=== PATIENT | female | born 1980 | race Hispanic/Latino ===

== ENCOUNTER 2018-05-08 15:51 | Emergency (ER) | payer MEDICAID ==
[2018-05-08 17:09] LABS: Hematocrit 41.7 % (30.3-42.9); Hemoglobin 14.8 gm/dl (10.1-14.3); Mean Corpuscular HGB Conc 36 % (30-34); Mean Corpuscular Hemoglobin 40 pg (28-32); Platelet Count 188 K/mm3 (140-440); Red Blood Count 3.76 M/mm3 (3.65-5.03); Red Cell Distribution Width 12.8 % (13.2-15.2)
[2018-05-08 17:17] LABS: Mean Corpuscular Volume 111 fl (79-97)
[2018-05-08 17:18] LABS: BUN/Creatinine Ratio 17; Blood Urea Nitrogen 10 mg/dL (7-17); Calcium 9.1 mg/dL (8.4-10.2); Hemolysis Index 8
--- NOTE | 2018-05-08 18:20 | Emergency Department Report ---
ED General Adult HPI - General Chief complaint: Neuro Symptoms/Deficit Stated complaint: RIGHT SIDE TINGLING Time Seen by Provider: 05/08/18 18:01 Source: patient Mode of arrival: Wheelchair Limitations: Physical Limitation - History of Present Illness Initial comments: Ms. Fonseca is a 38-year-old female with history of HIV/AIDS CD4 counts3. She was recently admitted in February severe PCP pneumonia nad acute hypoxemic respiratory failure at [facility]. She was admitted for 62 days. She has been a resident of [facility] for 3 days since discharge from Hospital. Since her illness she has had paresthesias tingling on the right arm and leg. She also tingling of left face. She has taken Fioricet and gabapentin for these symptoms. Also has a history of bipolar affective disorder. Currently taking Zoloft. History of tobacco and marijuana use. She is currently receiving physical therapy. She requires assistance with ambulation. Family history includes father with diabetes and heart disease. Patient lives in [place], [place] - Related Data Previous Rx's Medication Instructions Recorded Last Taken Type Butalb/Acetaminophen/Caffeine 1 cap PO Q6HR PRN #20 cap 05/08/18 Unknown Rx [Fioricet 50-300-40 mg CAP] Gabapentin [Neurontin] 300 mg PO TID 30 Days #90 capsule 05/08/18 Unknown Rx Allergies Allergy/AdvReac Type Severity Reaction Status Date / Time No Known Allergies Allergy Unverified 05/08/18 16:23 ED Review of Systems ROS: Stated complaint: RIGHT SIDE TINGLING Other details as noted in HPI Comment: All other systems reviewed and negative Constitutional: denies: fever, malaise Cardiovascular: denies: chest pain Gastrointestinal: denies: abdominal pain ED Past Medical Hx - Past Medical History Hx Psychiatric Treatment: Yes (DEPRESSION) Hx HIV: Yes - Surgical History Past Surgical History?: No - Social History Smoking Status: Current Every Day Smoker Substance Use Type: Marijuana - Medications Home Medications: Home Medications Medication Instructions Recorded Confirmed Last Taken Type Butalb/Acetaminophen/Caffeine 1 cap PO Q6HR PRN #20 cap 05/08/18 Unknown Rx [Fioricet 50-300-40 mg CAP] Gabapentin [Neurontin] 300 mg PO TID 30 Days #90 capsule 05/08/18 Unknown Rx ED Physical Exam - General Limitations: Physical Limitation General appearance: alert, in no apparent distress, other (sitting comfortably in stretcher using upper extremities fluidly, legs crossed at the ankle) - Head Head exam: Present: atraumatic, normocephalic - Eye Eye exam: Present: normal appearance - ENT ENT exam: Present: mucous membranes moist - Neck Neck exam: Present: normal inspection. Absent: tenderness, meningismus - Respiratory Respiratory exam: Present: normal lung sounds bilaterally. Absent: respiratory distress, wheezes, rales, rhonchi - Cardiovascular Cardiovascular Exam: Present: regular rate, normal rhythm, normal heart sounds. Absent: systolic murmur, diastolic murmur, rubs, gallop - GI/Abdominal GI/Abdominal exam: Present: soft, normal bowel sounds. Absent: distended, tenderness, guarding, rebound - Extremities Exam Extremities exam: Present: normal inspection - Back Exam Back exam: Present: normal inspection - Neurological Exam Neurological exam: Present: alert, oriented X3, CN II-XII intact, other (able to weightbear with assistance). Absent: motor sensory deficit - Psychiatric Psychiatric exam: Present: normal affect, normal mood - Skin Skin exam: Present: warm, dry, intact, normal color. Absent: rash ED Course Vital Signs 05/08/18 16:23 Temperature 98.2 F Pulse Rate 100 H Respiratory 16 Rate Blood Pressure 126/84 O2 Sat by Pulse 97 Oximetry ED Medical Decision Making - Lab Data Result diagrams: 05/08/18 16:43 05/08/18 16:43 Laboratory Results - last 24 hr 05/08/18 05/08/18 16:43 16:43 WBC 2.8 L RBC 3.76 Hgb 14.8 H Hct 41.7 MCV 111 H MCH 40 H MCHC 36 H RDW 12.8 L Plt Count 188 Hale % (Auto) Consultant Intern Eos % (Auto) Consultant Intern Hale # Consultant Intern Eos # Consultant Intern Baso # Consultant Intern Seg Neutrophils % Consultant Intern Seg Neutrophils # Consultant Intern Sodium 140 Potassium 4.2 Chloride 102.6 Carbon Dioxide 26 Anion Gap 16 BUN 10 Creatinine 0.6 L Estimated GFR > 60 BUN/Creatinine Ratio 17 Glucose 78 Calcium 9.1 Vital Signs - 24 hr 05/08/18 16:23 Temperature 98.2 F Pulse Rate 100 H Respiratory 16 Rate Blood Pressure 126/84 O2 Sat by Pulse 97 Oximetry - Medical Decision Making Ms. Fonseca presents with paresthesias in left face and right extremities which have been evaluated during recent admission. She explained that she was intubated during the hospital course. Consequently, she has "nerve damage" and obvious deconditioning. She has intact strength in upper extremities. She will need PT/OT which she is receiving. I do not detect acute illness at this time such as CVA. She may benefit from outpatient neurology evaluation. I did provided referral and refills of fioricet and gabapentin. Dc'd maxwell to [facility]. I spoke with caregiver Emilia Estrella prior to discharge. Patient explained that she has taken Gabapentin for years. She thinks the nerve damage is related to HIV infection. Critical care attestation.: If time is entered above; I have spent that time in minutes in the direct care of this critically ill patient, excluding procedure time. ED Disposition Clinical Impression: Paresthesia, HIV (human immunodeficiency virus infection), Hx of pneumocystis pneumonia Disposition: DC TO HOME OR SELFCARE Is pt being admited?: No Does the pt Need Aspirin: No Condition: Stable Instructions: Paresthesia (ED) Prescriptions: Butalb/Acetaminophen/Caffeine [Fioricet 50-300-40 mg CAP] 1 cap PO Q6HR PRN #20 cap PRN Reason: Headache Gabapentin [Neurontin] 300 mg PO TID 30 Days #90 capsule Referrals: [facility] [Outside] - 3-5 Days PAPI CORDOBA MD [Staff Physician] - 3-5 Days
[2018-05-08 18:25] VITALS: BP 109/87
[2018-05-08 18:33] LABS: Total Cells Counted 100
[2018-05-08 18:37] LABS: Anisocytosis 1+; Basophils % (Manual) 0 % (0.0-1.8); Platelet Estimate Consistent w Auto
== END 2018-05-08 18:56 | disposition home or self-care (01) ==
LOC: ED 15:51
DX: R20.0 Anesthesia of skin (principal); R20.2 Paresthesia of skin; F32.9 Major depressive disorder, single episode, unspecified; F17.200 Nicotine dependence, unspecified, uncomplicated; F12.10 Cannabis abuse, uncomplicated
CPT/HCPCS: 36415; 80048; 85007; 85025; 99283